=== PATIENT | male | born 1955 | race Caucasian/White ===

== ENCOUNTER 2017-09-28 11:29 | Emergency (ER) | payer BC ==
[2017-09-28 11:31] VITALS: BMI 26.4
[2017-09-28 11:32] VITALS: TEMP 98
[2017-09-28] MEDS ORDERED: Sodium Chloride 0.9% 1,000 ML IV SCH (11:45)
--- NOTE | 2017-09-28 11:55 | ED PDOC ---
HPI: Abdomen Time Seen by Provider: 09/28/17 11:35 Chief Complaint (Nursing): Abdominal Pain Chief Complaint (Provider): Right lower quadrant pain History Per: Patient History/Exam Limitations: no limitations Onset/Duration Of Symptoms: Hrs (x6) Current Symptoms Are (Timing): Still Present Additional Complaint(s): Kevin Mack is a 62 year old male with a past surgical history of an appendectomy brought to the ED via EMS for an evaluation of localized, constant right lower quadrant abdominal pain occurring since 4 AM this morning prior to arrival. The patient states associated non-bloody vomiting, reporting 3-4 episodes occurring since 4 AM. Additionally the patient states associated watery diarrhea since 4 AM. The patient reports eating scrambled eggs and drinking milk for breakfast. The patient denies any dysuria or hematuria, with last occurrences of urination occurring prior to sleeping and during episodes of diarrhea. The patient reports working for the [employer] and denies any changes in activities. PMD: [place] Past Medical History Reviewed: Historical Data, Nursing Documentation, Vital Signs Vital Signs: Last Vital Signs Temp 98.0 F 09/28/17 11:30 Pulse 82 09/28/17 11:30 Resp 20 09/28/17 11:40 BP 131/71 09/28/17 11:40 Pulse Ox 100 09/28/17 12:03 - Medical History PMH: No Chronic Diseases - Surgical History Surgical History: Appendectomy - Family History Family History: States: No Known Family Hx - Social History Current smoker - smoking cessation education provided: No Ex-Smoker (has not smoked in the last 12 months): No Alcohol: None Drugs: Denies - Home Medications Home Medications: Ambulatory Orders Medication Instructions Recorded Acetaminophen [Tylenol 325mg tab] 2 tab PO Q4H #30 tab 09/28/17 Ibuprofen [Motrin] 600 mg PO Q6 #25 tab 09/28/17 Ondansetron ODT [Zofran ODT] 4 mg PO Q8 #12 odt 09/28/17 Tamsulosin [Flomax] 0.4 mg PO DAILY #5 cap 09/28/17 oxyCODONE/Acetaminophen [Percocet 1 tab PO Q6 #10 tab 09/28/17 5/325 mg Tab] - Allergies Allergies/Adverse Reactions: Allergies Allergy/AdvReac Type Severity Reaction Status Date / Time sesame seed Allergy RASH Verified 09/28/17 11:43 Review of Systems ROS Statement: Except As Marked, All Systems Reviewed And Found Negative Constitutional: Negative for: Fever, Chills Gastrointestinal: Positive for: Nausea, Vomiting, Abdominal Pain (right lower quadrant pain), Diarrhea. Negative for: Melena, Hematochezia, Hematemesis Genitourinary Male: Negative for: Dysuria, Hematuria Physical Exam - Reviewed Nursing Documentation Reviewed: Yes Vital Signs Reviewed: Yes - Physical Exam Appears: Positive for: Non-toxic, No Acute Distress Head Exam: Positive for: ATRAUMATIC, NORMOCEPHALIC Skin: Positive for: Normal Color, Warm, Dry Eye Exam: Positive for: Normal appearance, EOMI ENT: Positive for: Normal ENT Inspection Neck: Positive for: Normal, Painless ROM Cardiovascular/Chest: Positive for: Regular Rate, Rhythm. Negative for: Edema Respiratory: Positive for: Normal Breath Sounds. Negative for: Respiratory Distress Gastrointestinal/Abdominal: Positive for: Soft, Tenderness (right lower quadrant tenderness), Guarding Back: Positive for: R CVA Tenderness. Negative for: L CVA Tenderness Extremity: Positive for: Normal ROM. Negative for: Deformity Neurologic/Psych: Positive for: Alert, Oriented (x3). Negative for: Motor/ Sensory Deficits - Laboratory Results Result Diagrams: 09/28/17 12:50 09/28/17 12:50 - ECG O2 Sat by Pulse Oximetry: 100 (RA) Pulse Ox Interpretation: Normal Medical Decision Making Medical Decision Making: Time: 11:35 Impression: Right RLQ and Right CVA tenderness Plan: * CMP * Lipase * CBC (with differential) * Urinalysis * Morphine 4 mg IVP * NS 0.9% 1,000 ml IV 1,000 mls/hr * Zofran 8 mg IVP * CT Abd & Pelvis IV contrast only * Reevalaution CT IMPRESSION: Obstructive 3 x 4 x 5 millimeter proximal right ureteral calculus causing mild hydronephrosis. Patient much improved. Will discharge, f/u urology, return to ED for worsening pain, fever, dyspnea, vomiting, or any other problem. Scribe Attestation: Documented by Anne Siddiqi, acting as a scribe for Roque Gonzales MD. Provider Scribe Attestation: All medical record entries made by the Scribe were at my direction and personally dictated by me. I have reviewed the chart and agree that the record accurately reflects my personal performance of the history, physical exam, medical decision making, and the department course for this patient. I have also personally directed, reviewed, and agree with the discharge instructions and disposition. Disposition - Clinical Impression Clinical Impression: Nephrolithiasis - Disposition Referrals: Esvin Camarillo MD [Staff Provider] - Disposition: Routine/Home Disposition Time: 14:22 Condition: STABLE Prescriptions: Acetaminophen [Tylenol 325mg tab] 2 tab PO Q4H #30 tab Ibuprofen [Motrin] 600 mg PO Q6 #25 tab Ondansetron ODT [Zofran ODT] 4 mg PO Q8 #12 odt oxyCODONE/Acetaminophen [Percocet 5/325 mg Tab] 1 tab PO Q6 #10 tab Tamsulosin [Flomax] 0.4 mg PO DAILY #5 cap Instructions: Kidney Stones (ED) Forms: [employer] (Micronesian)
[2017-09-28] MEDS ORDERED: Morphine 4 MG/ML VIAL ONE (12:05)
[2017-09-28] MEDS ORDERED: Morphine 4 MG/ML VIAL IVP STA (12:19)
[2017-09-28 13:09] LABS: ALB/GLOB RATIO 1.3 (1.0-2.1); ALKALINE PHOSPHATASE 106 U/L (38-126); ALT/SGPT 38 U/L (21-72); AST/SGOT 27 U/L (17-59); BILIRUBIN,TOTAL 0.3 mg/dl (0.2-1.3); BLOOD UREA NITROGEN 25 mg/dl (9-20); CARBON DIOXIDE 20 mmol/L (22-30); CHLORIDE 104 mmol/L (98-107); GFR AFRICAN-AMERICAN > 60; GLUCOSE,RANDOM 153 mg/dL (75-110); LIPASE 184 U/L (23-300); POTASSIUM 4.3 MMOL/L (3.6-5.0); SODIUM 137 mmol/l (132-148); TOTAL PROTEIN 7.4 G/DL (6.3-8.2)
[2017-09-28 13:16] LABS: BASO # 0.1 K/uL (0.0-0.2); BASO % 0.7 % (0.0-2.0); EOS # 0.2 K/uL (0.0-0.7); EOS % 2.6 % (0.0-4.0); HEMATOCRIT 46.7 % (35.0-51.0); LYMPH # 2.4 K/uL (1.0-4.3); LYMPH % 28.4 % (20.0-40.0); MEAN CORPUSCULAR HEMOGLOBIN 29.9 pg (27.0-31.0); MEAN CORPUSCULAR HGB CONC 32.9 g/dL (33.0-37.0); MEAN PLATELET VOLUME 9.9 fl (7.2-11.7); MONO # 0.7 K/uL (0.0-0.8); MONO % 8.5 % (0.0-10.0); NEUT % 59.8 % (50.0-75.0); NRBC % 0.2 % (0.0-0.0); RED CELL DISTRIBUTION WIDTH 13.4 % (11.5-14.5); WHITE BLOOD COUNT 8.4 K/uL (4.8-10.8)
[2017-09-28] MEDS ORDERED: Iohexol 300 100 ML IJ ONE (13:37)
--- NOTE | 2017-09-28 14:19 | CT ---
PROCEDURE: CT Abdomen and Pelvis with contrast HISTORY: RLQ pain, R flank pain, vomiting, diarrhea COMPARISON: None. TECHNIQUE: Contrast dose: 95 mL Omnipaque 300 Radiation dose: Total exam DLP = 986 mGy-cm. This CT exam was performed using one or more of the following dose reduction techniques: Automated exposure control, adjustment of the mA and/or kV according to patient size, and/or use of iterative reconstruction technique. FINDINGS: LOWER THORAX: Unremarkable. LIVER: Unremarkable. No gross lesion or ductal dilatation. GALLBLADDER AND BILE DUCTS: Unremarkable. PANCREAS: Unremarkable. No gross lesion or ductal dilatation. SPLEEN: Unremarkable. ADRENALS: Unremarkable. No mass. KIDNEYS AND URETERS: Obstructive 3 x 4 x 5 millimeter proximal right ureteral calculus causing mild hydronephrosis. 8 millimeter right lower pole cortical cyst. Left lower pole punctate nonobstructing calculus. Left lower pole 1.6 centimeters cortical cyst. No hydronephrosis. No solid mass. VASCULATURE: Unremarkable. No aortic aneurysm. BOWEL: Unremarkable. No obstruction. No gross mural thickening. APPENDIX: Not visualized. PERITONEUM: Unremarkable. No free fluid. No free air. LYMPH NODES: Unremarkable. No enlarged lymph nodes. BLADDER: Unremarkable. REPRODUCTIVE: Enlarged prostate. BONES: Spinal degenerative changes. OTHER FINDINGS: None. IMPRESSION: Obstructive 3 x 4 x 5 millimeter proximal right ureteral calculus causing mild hydronephrosis. Additional findings as above. Findings conveyed to Dr. Gonzales by Dr. Rossi at 2:15 pm on 09/28/2017.
[2017-09-28 14:37] LABS: RBC URINE 16 /hpf (0-3); URINE BACTERIA RARE (<OCC); URINE BILIRUBIN NEGATIVE (NEGATIVE); URINE BLOOD MODERATE (NEGATIVE); URINE COLOR YELLOW (YELLOW); URINE GLUCOSE (UA) NEG (Normal); URINE KETONE TRACE mg/dL (NEGATIVE); URINE LEUKOCYTE ESTERASE NEG Leu/uL (Negative); URINE PROTEIN 30 mg/dL (NEGATIVE); URINE UROBILINOGEN 0.2-1.0 mg/dL (0.2-1.0); WBC URINE 1 /hpf (0-5)
[2017-09-28 14:55] VITALS: BP 115/74; PULSE 70; RESP 18; O2SAT 98
== END 2017-09-28 15:04 | disposition home or self-care (01) ==
LOC: H.ER 11:29
DX: N13.2 Hydronephrosis with renal and ureteral calculous obstruction (principal); Z87.891 Personal history of nicotine dependence
CPT/HCPCS: 74177; 80053; 81003; 83690; 85025; 96361; 96374; 96375; 99283; J2270; J2405; J7040; Q9967

== ENCOUNTER 2017-09-29 19:12 | Emergency (ER) | payer BC ==
[2017-09-29 19:29] VITALS: BP 134/88; PULSE 65; RESP 18; TEMP 97.5; O2SAT 97
[2017-09-29] MEDS ORDERED: Sodium Chloride 0.9% 1,000 ML IV STA (20:12)
[2017-09-29 20:47] LABS: BASO # 0.1 K/uL (0.0-0.2); BASO % 0.6 % (0.0-2.0); EOS # 0.1 K/uL (0.0-0.7); EOS % 1.4 % (0.0-4.0); HEMATOCRIT 42.4 % (35.0-51.0); MEAN CELL VOLUME 89.4 fl (80.0-94.0); MEAN CORPUSCULAR HEMOGLOBIN 30.6 pg (27.0-31.0); MEAN CORPUSCULAR HGB CONC 34.2 g/dL (33.0-37.0); MEAN PLATELET VOLUME 9.9 fl (7.2-11.7); MONO # 0.6 K/uL (0.0-0.8); MONO % 6.3 % (0.0-10.0); NEUT % 81.7 % (50.0-75.0); NRBC % 0.1 % (0.0-0.0); RED CELL DISTRIBUTION WIDTH 13.6 % (11.5-14.5); WHITE BLOOD COUNT 9.8 K/uL (4.8-10.8)
[2017-09-29 20:56] LABS: RBC URINE 4 /hpf (0-3); URINE BILIRUBIN NEGATIVE (NEGATIVE); URINE BLOOD NEGATIVE (NEGATIVE); URINE COLOR YELLOW (YELLOW); URINE GLUCOSE (UA) NEG (Normal); URINE KETONE NEGATIVE (NEGATIVE); URINE LEUKOCYTE ESTERASE NEG Leu/uL (Negative); URINE PROTEIN 30 mg/dL (NEGATIVE); URINE UROBILINOGEN 0.2-1.0 mg/dL (0.2-1.0); WBC URINE 1 /hpf (0-5)
--- NOTE | 2017-09-29 21:28 | ED PDOC ---
HPI: General Adult Time Seen by Provider: 09/29/17 19:18 Chief Complaint (Nursing): Abdominal Pain Chief Complaint (Provider): Abdominal Pain History Per: Patient History/Exam Limitations: no limitations Onset/Duration Of Symptoms: Days (x 1) Current Symptoms Are (Timing): Still Present Recently: Seen In ED Additional Complaint(s): Kevin cardenas 62 year old male who presents to the emergency department complaining of right flank pain associated with nausea and vomiting. Patient states he was here in the ER yesterday and was discharged home with medications. Today, patient went home, but pain started again and was vomiting. Pain is somewhat gone at this time. Denies fever, diarrhea, pain, but vomiting has not resolved. Prior results shows patient had an obstructive 3 x 4 x 5 millimeter proximal right ureteral calculus causing mild hydronephrosis. 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[place], [place] Past Medical History Reviewed: Historical Data, Nursing Documentation, Vital Signs Vital Signs: Last Vital Signs Temp 97.5 F L 09/29/17 19:25 Pulse 65 09/29/17 19:25 Resp 18 09/29/17 19:25 BP 134/88 09/29/17 19:25 Pulse Ox 97 10/01/17 05:14 - Medical History PMH: Kidney Stones Other PMH: Ligament injury lower extremity - Surgical History Surgical History: Appendectomy - Family History Family History: States: Unknown Family Hx - Social History Current smoker - smoking cessation education provided: No Alcohol: None Drugs: Denies - Home Medications Home Medications: Ambulatory Orders Medication Instructions Recorded Acetaminophen [Tylenol 325mg tab] 2 tab PO Q4H #30 tab 09/28/17 Ibuprofen [Motrin] 600 mg PO Q6 #25 tab 09/28/17 Ondansetron ODT [Zofran ODT] 4 mg PO Q8 #12 odt 09/28/17 Tamsulosin [Flomax] 0.4 mg PO DAILY #5 cap 09/28/17 oxyCODONE/Acetaminophen [Percocet 1 tab PO Q6 #10 tab 09/28/17 5/325 mg Tab] - Allergies Allergies/Adverse Reactions: Allergies Allergy/AdvReac Type Severity Reaction Status Date / Time sesame seed Allergy RASH Verified 09/28/17 11:43 Review of Systems ROS Statement: Except As Marked, All Systems Reviewed And Found Negative Constitutional: Positive for: Fever Gastrointestinal: Positive for: Nausea, Vomiting. Negative for: Diarrhea Physical Exam - Reviewed Nursing Documentation Reviewed: Yes Vital Signs Reviewed: Yes - Physical Exam Appears: Positive for: Well, Non-toxic Head Exam: Positive for: ATRAUMATIC, NORMAL INSPECTION, NORMOCEPHALIC Skin: Positive for: Normal Color, Warm, DRY Eye Exam: Positive for: EOMI, Normal appearance, PERRL ENT: Positive for: Normal ENT Inspection Neck: Positive for: Normal Cardiovascular/Chest: Positive for: Regular Rate, Rhythm Respiratory: Positive for: Normal Breath Sounds. Negative for: Respiratory Distress Gastrointestinal/Abdominal: Positive for: Normal Exam Extremity: Positive for: Normal ROM. Negative for: Deformity Neurologic/Psych: Positive for: Alert, Oriented - Laboratory Results Result Diagrams: 09/29/17 20:42 09/29/17 20:21 - ECG O2 Sat by Pulse Oximetry: 97 (RA) Pulse Ox Interpretation: Normal Medical Decision Making Medical Decision Making: Time: 20:11 Plan: pt with known kidney stone, here with pain. however resolved at time of exam. - CMP - Lipase - CBC - Sodium Chloride 0.9% 1,000 ml IV 999 mls/hr - Zofran Inj - Urine Culture - Urinalysis reeval pt, pain resolved. abdominal exam normal. pt tolerated po. stabel for dc and outpt follow up w urology Scribe Attestation: Documented by Neno Rangel, acting as a scribe for Johana Walters MD. Provider Scribe Attestation: All medical record entries made by the Scribe were at my direction and personally dictated by me. I have reviewed the chart and agree that the record accurately reflects my personal performance of the history, physical exam, medical decision making, and the department course for this patient. I have also personally directed, reviewed, and agree with the discharge instructions and disposition. Disposition - Clinical Impression Clinical Impression: Abdominal pain - Patient ED Disposition Is Patient to be Admitted: No Counseled Patient/Family Regarding: Studies Performed, Diagnosis, Need For Followup - Disposition Disposition: Routine/Home Disposition Time: 21:00 Condition: IMPROVED Additional Instructions: follow up with urologist return to the ED with any worsening or concerning symptoms Instructions: Abdominal Pain (ED) Forms: [employer] (Divehi)
[2017-09-29 21:39] LABS: ALB/GLOB RATIO 1.1 (1.0-2.1); ALKALINE PHOSPHATASE 80 U/L (38-126); ALT/SGPT 39 U/L (21-72); AST/SGOT 32 U/L (17-59); BILIRUBIN,TOTAL 0.3 mg/dl (0.2-1.3); BLOOD UREA NITROGEN 20 mg/dl (9-20); CALCIUM 8.3 mg/dL (8.4-10.2); CARBON DIOXIDE 25 mmol/L (22-30); CHLORIDE 106 mmol/L (98-107); GFR AFRICAN-AMERICAN > 60; GLUCOSE,RANDOM 102 mg/dL (75-110); LIPASE 161 U/L (23-300); POTASSIUM 4.3 MMOL/L (3.6-5.0); SODIUM 137 mmol/l (132-148); TOTAL PROTEIN 7.1 G/DL (6.3-8.2)
== END 2017-09-30 00:12 | disposition home or self-care (01) ==
LOC: H.ER 19:12
DX: N20.0 Calculus of kidney (principal)
CPT/HCPCS: 80053; 81003; 83690; 85025; 87086; 96374; 99282; J2405; J7040